=== PATIENT | male | born 1935 | race Caucasian/White ===

== ENCOUNTER 2023-04-04 11:46 | Emergency (ER) | payer OTHER ==
[~2023-04-04] VITALS: Ht 175.3 cm; Wt 77.1 kg
[~2023-04-04 11:46] MED LIST: BUME1TAB8 PO; DOCU50CA13 PO; LEVO75TA7 PO; LOSA25TA3 PO; MULT-1150 PO; POTA8TAB66 PO; ROSU10TA2 PO; WARF4TAB72 PO
[2023-04-04 11:47] VITALS: BP_SYST 147
[2023-04-04] MEDS ORDERED: KETOROLAC TROMETHAMINE 30 MG VIAL IM ONE (13:00)
[2023-04-04] MEDS ORDERED: LIDO1ADH77 TP (17:07)
[2023-04-04 17:29] VITALS: BP_SYST 149
== END 2023-04-04 17:31 | disposition home or self-care (01) ==
LOC: SED 11:46
DX: S32.030A Wedge compression fracture of third lumbar vertebra, initial encounter for closed fracture (principal); I10 Essential (primary) hypertension; E78.5 Hyperlipidemia, unspecified; Z88.2 Allergy status to sulfonamides; Z91.018 Allergy to other foods; X58.XXXA Exposure to other specified factors, initial encounter; Y93.89 Activity, other specified; Y92.89 Other specified places as the place of occurrence of the external cause; Y99.8 Other external cause status
CPT/HCPCS: 99285; 72131; 76376; 96372; J1885